=== PATIENT | male | born 1935 | race Caucasian/White ===

== ENCOUNTER 2017-07-30 02:00 | Emergency (ER) | payer MEDICARE, MEDICAID ==
[2017-07-30] MEDS ORDERED: Ondansetron INJ* 2 MG/ML VIAL IV ONE (02:49)
[2017-07-30] MEDS ORDERED: NS 0.9% 1000 ML* 1,000 ML IV ONE (02:49)
[2017-07-30] MEDS ORDERED: Hyoscyamine TAB* 0.125 MG PO ONE (03:07)
[2017-07-30 03:13] LABS: ABS Basophils 0 10^3/ul (0-0.2); ABS Eosinophils 0.1 10^3/ul (0-0.6); ABS Lymphocytes 0.3 10^3/ul (1.0-4.8); ABS Monocytes 0.3 10^3/ul (0-0.8); ABS Neutrophils 7.8 10^3/ul (1.5-7.7); ABS Nucleated RBC 0 10^3/ul; Eosinophil % 1.4 % (0-6); Hematocrit 44 % (42-52); Hemoglobin 15.2 g/dl (14.0-18.0); Lymphocyte % 3.2 % (25-47); Mean Corpuscular HGB Conc 34 g/dl (31-36); Mean Corpuscular Hemoglobin 32 pg (27-31); Mean Corpuscular Volume 93 fL (80-94); Mean Platelet Volume 9 um3 (7.4-10.4); Nucleated Red Blood Cells % 0.1; Platelet Count 219 10^3/ul (150-450); Red Blood Count 4.74 10^6/ul (4.0-5.4); Red Cell Distribution Width 14 % (10.5-15); White Blood Count 8.5 10^3/ul (3.5-10.8)
[2017-07-30 03:23] LABS: EGFR Non-African American 74.8 (>60)
[2017-07-30 05:05] VITALS: BP 125/62
--- NOTE | 2017-07-30 06:32 | ED ---
Lucio Metcalf Angela, scribed for Zia Julian MD on 07/30/17 at 0312 . GI/ HPI - HPI Summary HPI Summary: This pt is a 81 y/o male presenting to [facility] c/o nausea, vomiting, and diarrhea that began last evening (07/29/17). Pt reports he first had diarrhea and then got off the toilet and vomited. He notes he had some abd pain afterwards. Pt states he hsa never been a smoker PMHx: skin CA, reece's esophagus. - History of Current Complaint Chief Complaint: EDNauseaVomitDiarrh Time Seen by Provider: 07/30/17 02:52 Stated Complaint: POSSIBLE FLU Hx Obtained From: Patient Onset/Duration: Started Hours Ago, Still Present Timing: Lasting Hours Pain Intensity: 0 Location of Pain: Diffuse Associated Signs and Symptoms: Positive: Nausea, Vomiting, Diarrhea - Allergy/Home Medications Allergies/Adverse Reactions: Allergies Allergy/AdvReac Type Severity Reaction Status Date / Time Statins Allergy Rash Verified 07/30/17 02:07 PMH/Surg Hx/FS Hx/Imm Hx Cardiovascular History: Reports: Hx Pacemaker/ICD GI History: Reports: Other GI Disorders - reece's esophagus Musculoskeletal History: Reports: Other Musculoskeletal History - osteoarthritis Neurological History: Reports: 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 - Cancer History Cancer Type, Location and Year: 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 Infectious Disease History: No Infectious Disease History: Denies: Traveled Outside the [place] in Last 30 Days - Family History Family History: Lung CA - Social History Alcohol Use: None Substance Use Type: Reports: None Smoking Status (MU): Never Smoked Tobacco Review of Systems Negative: Fever, Chills Eyes: Negative ENT: Negative Positive: Abdominal Pain, Vomiting, Diarrhea, Nausea Musculoskeletal: Negative Skin: Negative Neurological: Negative All Other Systems Reviewed And Are Negative: Yes Physical Exam - Summary Physical Exam Summary: Appearance: Well appearing, no pain distress Skin: warm, dry, reflects adequate perfusion Head/face: normal Eyes: EOMI, VAHID ENT: Mucous membranes are a little tacky. Scar on his nose. Neck: supple, non-tender Respiratory: CTA, breath sounds present Cardiovascular: RRR, pulses symmetrical. Pulses are good. Abdomen: non-tender, soft Bowel: bowel sounds are a little diminished. Musculoskeletal: normal, strength/ROM intact Neuro: normal, sensory motor intact, A&Ox3 Triage Information Reviewed: Yes Vital Signs On Initial Exam: Initial Vitals Temp Pulse Resp BP Pulse Ox 98.5 F 94 16 122/59 96 07/30/17 02:04 07/30/17 02:04 07/30/17 02:04 07/30/17 02:04 07/30/17 02:04 Vital Signs Reviewed: Yes Diagnostics - Vital Signs Vital Signs Temp Pulse Resp BP Pulse Ox 07/30/17 02:04 98.5 F 94 16 122/59 96 - Laboratory Lab Results: Lab Results 07/30/17 07/30/17 07/30/17 Range/Units 02:55 02:55 02:55 WBC 8.5 (3.5-10.8) 10^3/ul RBC 4.74 (4.0-5.4) 10^6/ul Hgb 15.2 (14.0-18.0) g/dl Hct 44 (42-52) % MCV 93 (80-94) fL MCH 32 H (27-31) pg MCHC 34 (31-36) g/dl RDW 14 (10.5-15) % Plt Count 219 (150-450) 10^3/ul MPV 9 (7.4-10.4) um3 Neut % (Auto) 91.3 H (38-83) % Lymph % (Auto) 3.2 L (25-47) % [place] % (Auto) 3.8 (1-9) % Eos % (Auto) 1.4 (0-6) % Baso % (Auto) 0.3 (0-2) % Absolute Neuts (auto) 7.8 H (1.5-7.7) 10^3/ul Absolute Lymphs (auto) 0.3 L (1.0-4.8) 10^3/ul Absolute Monos (auto) 0.3 (0-0.8) 10^3/ul Absolute Eos (auto) 0.1 (0-0.6) 10^3/ul Absolute Basos (auto) 0 (0-0.2) 10^3/ul Absolute Nucleated RBC 0 10^3/ul Nucleated RBC % 0.1 Sodium 136 (133-145) mmol/L Potassium 4.1 (3.5-5.0) mmol/L Chloride 101 (101-111) mmol/L Carbon Dioxide 28 (22-32) mmol/L Anion Gap 7 (2-11) mmol/L BUN 26 H (6-24) mg/dL Creatinine 0.96 (0.67-1.17) mg/dL Est GFR ( Amer) 96.2 (>60) Est GFR (Non-Af Amer) 74.8 (>60) BUN/Creatinine Ratio 27.1 H (8-20) Glucose 143 H (70-100) mg/dL Lactic Acid 1.4 (0.5-2.0) mmol/L Calcium 8.8 (8.6-10.3) mg/dL Total Bilirubin 0.70 (0.2-1.0) mg/dL AST 17 (13-39) U/L ALT 14 (7-52) U/L Alkaline Phosphatase 79 (34-104) U/L C-Reactive Protein 11.93 H (< 5.00) mg/L Total Protein 6.8 (6.4-8.9) g/dL Albumin 4.0 (3.2-5.2) g/dL Globulin 2.8 (2-4) g/dL Albumin/Globulin Ratio 1.4 (1-3) Lipase 38 (11.0-82.0) U/L Result Diagrams: 07/30/17 02:55 07/30/17 02:55 Lab Statement: Any lab studies that have been ordered have been reviewed, and results considered in the medical decision making process. Re-Evaluation - Re-Evaluation First Eval Re-Evaluation Time: 04:47 Comment: Pt is feeling a little better. He had a small amount of watery stool earlier here in the ED. On re-examination, his abd is soft and nontender, with bowel sounds present. I reviewed the lab results with the pt. GIGU Course/Dx - Course Course Of Treatment: acute onset of N/V/D without abd pain, abd soft and non- tender here. Watery stool. Urinated here. No evidence for dehydration. Improved with zofran and fluids. Pt wished to discharge, encouraged close f/u PMD. - Diagnoses Provider Diagnoses: Acute gastroenteritis Discharge - Discharge Plan Condition: Good Disposition: HOME Prescriptions: Loperamide CAP* [Imodium CAP*] 2 mg PO Q4H PRN #20 cap PRN Reason: Diarrhea Ondansetron [Zofran Odt] 4 mg PO TID PRN #12 tab PRN Reason: Nausea Patient Education Materials: Gastroenteritis (ED) Referrals: Logan Nath, [Primary Care Provider] - Additional Instructions: Call your doctor first thing in the morning for a follow up appt. Drink plenty of fluids, Gatorade G2 may work best. Return with fever, unable to keep down fluids, worse or other concerns. [place] diet when able. The documentation as recorded by the Lucio topete Angela accurately reflects the service I personally performed and the decisions made by me, Zia Julian MD.
== END 2017-07-30 05:07 | disposition home or self-care (01) ==
LOC: ED 02:00
DX: K52.9 Noninfective gastroenteritis and colitis, unspecified (principal); Z88.8 Allergy status to other drugs, medicaments and biological substances
CPT/HCPCS: 36415; 80053; 83605; 83690; 85025; 86140; 96361; 96374; 99283; A9270-GY; J2405

== ENCOUNTER 2018-10-19 18:02 | Emergency (ER) | payer MEDICARE, MEDICAID ==
[2018-10-19 18:54] LABS: ABS Basophils 0.1 10^3/ul (0-0.2); ABS Eosinophils 0.4 10^3/ul (0-0.6); ABS Lymphocytes 1.9 10^3/ul (1.0-4.8); ABS Monocytes 0.6 10^3/ul (0-0.8); ABS Neutrophils 4.4 10^3/ul (1.5-7.7); ABS Nucleated RBC 0 10^3/ul; Eosinophil % 5.9 %; Hematocrit 43 % (36-46); Hemoglobin 15.3 g/dL (14.0-18.0); Lymphocyte % 25.5 %; Mean Corpuscular HGB Conc 35 g/dL (31-36); Mean Corpuscular Hemoglobin 32 pg (27-31); Mean Corpuscular Volume 92 fL (80-94); Mean Platelet Volume 8.2 fL (7.4-10.4); Nucleated Red Blood Cells % 0.1; Platelet Count 287 10^3/uL (150-450); Red Blood Count 4.71 10^6 /uL (4.18-5.48); Red Cell Distribution Width 14 % (10.5-15); White Blood Count 7.4 10^3/uL (3.5-10.8)
[2018-10-19 18:56] LABS: Urine Appearance Clear; Urine Bilirubin Negative (Negative); Urine Blood Negative (Negative); Urine Color Yellow; Urine Glucose Negative (Negative); Urine Ketones Trace (Negative); Urine Nitrite Negative (Negative); Urine Protein Negative (Negative); Urine Specific Gravity 1.029 (1.010-1.030); Urine Urobilinogen Negative (Negative)
[2018-10-19 19:08] LABS: ALT 13 U/L (7-52); Albumin 4.3 g/dL (3.2-5.2); Albumin/Globulin Ratio 1.5 (1-3); Alkaline Phosphatase 100 U/L (34-104); BUN/Creatinine Ratio 22.3 (8-20); Blood Urea Nitrogen 21 mg/dL (6-24); CO2 Carbon Dioxide 26 mmol/L (22-32); Chloride 104 mmol/L (101-111); EGFR African American 92.3 (>60); EGFR Non-African American 76.3 (>60); Globulin 2.8 g/dL (2-4); Glucose 81 mg/dL (70-100); Sodium 137 mmol/L (135-145); Total Protein 7.1 g/dL (6.4-8.9)
[2018-10-19 19:29] LABS: Anion Gap 7 mmol/L (2-11)
--- NOTE | 2018-10-19 19:54 | ED ---
Abdominal Pain/Male - HPI Summary HPI Summary: The patient is a 83 year old male who is presenting to the [facility] with a chief complaint of abd pain. He is accompanied by his niece. The patient describes the pain to be located to the suprapubic to the left groin region. Pain radiates to the left flank and lower back. Symptoms are partially alleviated by Tylenol, but not completely. Patient denies N/V/D, fever, burning urination, urinary urgency, and hematuria. The pain is rated to be 8/10 in severity. Symptoms are not aggravated by nothing. Last bowel movement was this morning. The pain is stated to be intermittent and the episodes have been reoccurring for the past 6 to 7 days. 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 - History of Current Complaint Chief Complaint: EDAbdPain Stated Complaint: PAIN IN GROIN PER PT Time Seen by Provider: 10/19/18 19:48 Hx Obtained From: Patient Onset/Duration: Sudden Onset Timing: Constant Severity Initially: Severe Severity Currently: Severe Pain Intensity: 8 Pain Scale Used: 0-10 Numeric Location: Suprapubic, Groin - Left groin. Radiates to: Back - Lower back, Flank - Left Flank Aggravating Factor(s): Nothing Alleviating Factor(s): Other: - Tylenol Associated Signs And Symptoms: Positive: Other - Negative urinary urgerncy; Negative burning sensation when urinating; Negative hematuria.. Negative: Fever , Nausea, Vomiting, Diarrhea - Allergies/Home Medications Allergies/Adverse Reactions: Allergies Allergy/AdvReac Type Severity Reaction Status Date / Time Adporxh-Sih-Bzx Reductase Allergy Rash Verified 10/19/18 18:08 Inhibitor Home Medications: Home Medications Levothyroxine TAB* [Synthroid TAB*] 75 mcg PO DAILY 10/19/18 [History Confirmed 10/19/18] Lisinopril TAB* [Prinivil TAB 5 MG*] 5 mg PO DAILY 10/19/18 [History Confirmed 10/19/18] Metoprolol Tartrate 50 mg PO DAILY 10/19/18 [History Confirmed 10/19/18] Omeprazole 40 mg PO DAILY 10/19/18 [History Confirmed 10/19/18] Sucralfate SUSP (NF) [Carafate SUSP (NF)] 10 ml PO DAILY 10/19/18 [History Confirmed 10/19/18] PMH/Surg Hx/FS Hx/Imm Hx Cardiovascular History: Reports: Hx Pacemaker/ICD GI History: Reports: Other GI Disorders - reece's esophagus Musculoskeletal History: Reports: Other Musculoskeletal History - osteoarthritis Neurological History: Reports: 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 Negative: Vomiting, Diarrhea, Nausea Negative: burning, frequency, hematuria Musculoskeletal: Other - Left Groin pain (radiates to the lower back and left flank) Skin: Negative Neurological: Negative Psychological: Normal All Other Systems Reviewed And Are Negative: Yes Physical Exam - Summary Physical Exam Summary: VITAL SIGNS: Reviewed. GENERAL: Patient is a well-developed and nourished (MALE) who is lying comfortable in the stretcher. Patient is not in any acute respiratory distress. HEAD AND FACE: No signs of trauma. No ecchymosis, hematomas or skull depressions. No sinus tenderness. EYES: PERRLA, EOMI x 2, No injected conjunctiva, no nystagmus. EARS: Hearing grossly intact. Ear canals and tympanic membranes are within normal limits. MOUTH: Oropharynx within normal limits. NECK: Supple, trachea is midline, no adenopathy, no JVD, no carotid bruit, no c- spine tenderness, neck with full ROM. CHEST: Symmetric, no tenderness at palpation LUNGS: Clear to auscultation bilaterally. No wheezing or crackles. CVS: Regular rate and rhythm, S1 and S2 present, no murmurs or gallops appreciated. ABDOMEN: Soft, non-tender. ABD DISTENSION. No rebound no guarding, and no masses palpated. Bowel sounds are normal. BACK: NO CVA TENDERNESS EXTREMITIES: FROM in all major joints, no edema, no cyanosis or clubbing. NEURO: Alert and oriented x 3. No acute neurological deficits. Speech is normal and follows commands. BILATERAL STRAIGHT LEG TEST IS NEGATIVE SKIN: Dry and warm Triage Information Reviewed: Yes Vital Signs On Initial Exam: Initial Vitals Temp Pulse Resp BP Pulse Ox 97.7 F 70 17 158/93 93 10/19/18 18:04 10/19/18 18:04 10/19/18 18:04 10/19/18 18:04 10/19/18 18:04 Vital Signs Reviewed: Yes Diagnostics - Vital Signs Vital Signs Temp Pulse Resp BP Pulse Ox 10/19/18 18:04 97.7 F 70 17 158/93 93 - Laboratory Lab Results: Lab Results 10/19/18 10/19/18 10/19/18 Range/Units 18:33 18:33 18:45 WBC 7.4 (3.5-10.8) 10^3/uL RBC 4.71 (4.18-5.48) 10^6 /uL Hgb 15.3 (14.0-18.0) g/dL Hct 43 (36-46) % MCV 92 (80-94) fL MCH 32 H (27-31) pg MCHC 35 (31-36) g/dL RDW 14 (10.5-15) % Plt Count 287 (150-450) 10^3/uL MPV 8.2 (7.4-10.4) fL Neut % (Auto) 58.9 % Lymph % (Auto) 25.5 % [place] % (Auto) 8.3 % Eos % (Auto) 5.9 % Baso % (Auto) 1.4 % Absolute Neuts (auto) 4.4 (1.5-7.7) 10^3/ul Absolute Lymphs (auto) 1.9 (1.0-4.8) 10^3/ul Absolute Monos (auto) 0.6 (0-0.8) 10^3/ul Absolute Eos (auto) 0.4 (0-0.6) 10^3/ul Absolute Basos (auto) 0.1 (0-0.2) 10^3/ul Absolute Nucleated RBC 0 10^3/ul Nucleated RBC % 0.1 Sodium 137 (135-145) mmol/L Potassium TNP Chloride 104 (101-111) mmol/L Carbon Dioxide 26 (22-32) mmol/L Anion Gap 7 (2-11) mmol/L BUN 21 (6-24) mg/dL Creatinine 0.94 (0.67-1.17) mg/dL Est GFR ( Amer) 92.3 (>60) Est GFR (Non-Af Amer) 76.3 (>60) BUN/Creatinine Ratio 22.3 H (8-20) Glucose 81 (70-100) mg/dL Calcium 9.0 (8.6-10.3) mg/dL Total Bilirubin 0.30 (0.2-1.0) mg/dL AST TNP ALT 13 (7-52) U/L Alkaline Phosphatase 100 (34-104) U/L Total Protein 7.1 (6.4-8.9) g/dL Albumin 4.3 (3.2-5.2) g/dL Globulin 2.8 (2-4) g/dL Albumin/Globulin Ratio 1.5 (1-3) Urine Color Yellow Urine Appearance Clear Urine pH 5.0 (5-9) Ur Specific [place] 1.029 (1.010-1.030) Urine Protein Negative (Negative) Urine Ketones Trace A (Negative) Urine Blood Negative (Negative) Urine Nitrate Negative (Negative) Urine Bilirubin Negative (Negative) Urine Urobilinogen Negative (Negative) Ur Leukocyte Esterase Negative (Negative) Urine Glucose Negative (Negative) Result Diagrams: 10/19/18 18:33 10/19/18 18:33 Lab Statement: Any lab studies that have been ordered have been reviewed, and results considered in the medical decision making process. Abdominal Pain Male Course/Dx - Course Course Of Treatment: The patient is a 83 year old male who is presenting to the [facility] w/ a chief complaint of abd pain. The patient states the pain to be loacted around the suprapubic region and at the left lower groin region. The pain radiates to the lower back and to the left flank. 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 The patient has had the pain for 6 to 7 days and it has been intermittent. The pain is reduced by Tylenol partially. In the ED Course, the patient received blood work and an urinalysis that showed no remarkable findings. We discussed that the patient should reduce his workload for a week and see if his symptoms still persist as well as use Tylenol every four hours. Warm compresses are recommeded over the region of pain and we also recommended that the patient should see his primary care physician if the pain is still ongoing or return to the [facility]. The patient is agreeable with this plan and he will be discharged home. The dx will be musculoskeletal pain. - Diagnoses Provider Diagnoses: Musculoskeletal pain Discharge - Sign-Out/Discharge Documenting (check all that apply): Patient Departure Patient Received Moderate/Deep Sedation with Procedure: No - Discharge Plan Condition: Stable Disposition: HOME Patient Education Materials: Musculoskeletal Pain (ED) Referrals: Logan Nath, [Primary Care Provider] - Additional Instructions: TYLENOL EVERY FOUR HOURS; TAKE NEEDED FOR PAIN. WARM COMPRESSES AT AREA OF PAIN. DECREASED PHYSICAL ACTIVITY FOR A WEEK. RETURN TO THE EMERGENCY DEPARTMENT FOR CHANGING OR WORSENING SYMPTOMS. FOLLOW UP WITH YOUR PRIMARY CARE PROVIDER WITHIN ONE WEEK IF SYMPTOMS ARE ONGOING. - Attestation Statements Document Initiated by Mayank: Yes Documenting Scribe: Santana Mann Provider For Whom Colinibe is Documenting (Include Credential): Dr. Philipp Shawibchaitanya Attestation: Santana Metcalf, manindered for Dr. Narendra Sanchez on 10/19/18 at 2020. Status of Scribe Document: Ready
[2018-10-19 20:22] VITALS: BP 159/81
== END 2018-10-19 20:21 | disposition home or self-care (01) ==
LOC: ED 18:02
DX: M79.18 Myalgia, other site (principal); K22.70 Barrett's esophagus without dysplasia; M19.90 Unspecified osteoarthritis, unspecified site; Z88.8 Allergy status to other drugs, medicaments and biological substances; Z79.899 Other long term (current) drug therapy; Z95.810 Presence of automatic (implantable) cardiac defibrillator; Z85.828 Personal history of other malignant neoplasm of skin
CPT/HCPCS: 36415; 80053; 81003; 85025; 99282

== ENCOUNTER 2019-06-17 10:41 | Emergency (ER) | payer MEDICARE, MEDICAID ==
--- NOTE | 2019-06-17 11:01 | ED ---
Skin Complaint - HPI Summary HPI Summary: This patient is an 83 year old male presenting to [facility] with a chief complaint of a skin irregularity first noticed 3 weeks ago. The patient states he noticed a new spot on his right arm around 1 cm in diameter and is concerned about skin cancer. He states a history of squamous cell carcinomas to his nose and right neck. He states when he gets these his dermatology typically just patches them. He states he tried to schedule dermatology for this but they were booked for 5- weeks. He states it has change since he first noticed it and was initially pruritic but now is not. . - History of Current Complaint Chief Complaint: EDRashSkinAbscess Time Seen by Provider: 06/17/19 10:55 Stated Complaint: SKIN RASH Hx Obtained From: Patient Onset/Duration: Started Weeks Ago Pain Intensity: 0 Pain Scale Used: 0-10 Numeric Skin Location: Arm - Allergy/Home Medications Allergies/Adverse Reactions: Allergies Allergy/AdvReac Type Severity Reaction Status Date / Time Keujtbu-Olk-Biy Reductase Allergy Rash Verified 06/17/19 10:48 Inhibitor PMH/Surg Hx/FS Hx/Imm Hx Cardiovascular History: Reports: Hx Pacemaker/ICD GI History: Reports: Other GI Disorders - reece's esophagus Musculoskeletal History: Reports: Other Musculoskeletal History - osteoarthritis Neurological History: Reports: 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 GENERAL: Patient is a well-developed and nourished MALE who is lying comfortable in the stretcher. Patient is not in any acute respiratory distress. HEAD AND FACE: No signs of trauma. No ecchymosis, hematomas or skull depressions. No sinus tenderness. EYES: PERRLA, EOMI x 2, No injected conjunctiva, no nystagmus. EARS: Hearing grossly intact. Ear canals and tympanic membranes are within normal limits. MOUTH: Oropharynx within normal limits. NECK: Supple, trachea is midline, no adenopathy, no JVD, no carotid bruit, no c- spine tenderness, neck with full ROM. CHEST: Symmetric, no tenderness at palpation. LUNGS: Clear to auscultation bilaterally. No wheezing or crackles. CVS: Regular rate and rhythm, S1 and S2 present, no murmurs or gallops appreciated. ABDOMEN: Soft, non-tender. No signs of distention. No rebound, no guarding, and no masses palpated. Bowel sounds are normal. EXTREMITIES: FROM in all major joints, no edema, no cyanosis or clubbing. NEURO: Alert and oriented x 3. No acute neurological deficits. Speech is normal and follows commands. SKIN: Dry and warm. Erythematous lesion on the right forearm with irregular borders which has been growing in size and pruritic. Triage Information Reviewed: Yes Vital Signs On Initial Exam: Initial Vitals Temp Pulse Resp BP Pulse Ox 99.2 F 72 16 192/74 94 06/17/19 10:42 06/17/19 10:42 06/17/19 10:42 06/17/19 10:42 06/17/19 10:42 Vital Signs Reviewed: Yes Procedures - Sedation Patient Received Moderate/Deep Sedation with Procedure: No Diagnostics - Vital Signs Vital Signs Temp Pulse Resp BP Pulse Ox 06/17/19 10:42 99.2 F 72 16 192/74 94 - Laboratory Lab Statement: Any lab studies that have been ordered have been reviewed, and results considered in the medical decision making process. Course/Dx - Course Assessment/Plan: This patient is an 83 year old male presenting to [facility] with a chief complaint of a skin irregularity first noticed 3 weeks ago. The patient states he noticed a new spot on his right arm around 1 cm in diameter and is concerned about skin cancer. He states a history of squamous cell carcinomas to his nose and right neck. He states when he gets these his dermatology typically just patches them. He states he tried to schedule dermatology for this but they were booked for 5-weeks. He states it has change since he first noticed it and was initially pruritic but now is not. Another. Patient will be referred to dermatology for possible biopsy. Patient is hemodynamically stable alert oriented 3. Cosleep - Diagnoses Provider Diagnoses: Skin lesion Discharge ED - Sign-Out/Discharge Documenting (check all that apply): Patient Departure - Discharge - Discharge Plan Condition: Stable Disposition: HOME Patient Education Materials: Itchy Skin (ED) Referrals: Juju Lackey [Medical Doctor] - As Soon As Possible Additional Instructions: Follow up with Dr. Lackey, Dermatology, for follow up. - Billing Disposition and Condition Condition: STABLE Disposition: Home - Attestation Statements Document Initiated by Scribe: Yes Documenting Scribe: Martínez Carson Provider For Whom Scribe is Documenting (Include Credential): Torrey Gallagher MD Scribe Attestation: Martínez Metcalf, scribed for Torrey Gallagher MD on 06/17/19 at 1830. Scribe Documentation Reviewed: Yes Provider Attestation: The documentation as recorded by the Martínez topete accurately reflects the service I personally performed and the decisions made by Torrey gonzalez MD Status of Scribe Document: Viewed
[2019-06-17 11:22] VITALS: BP 175/92
== END 2019-06-17 11:11 | disposition home or self-care (01) ==
LOC: ED 10:41
DX: L98.9 Disorder of the skin and subcutaneous tissue, unspecified (principal); Z85.828 Personal history of other malignant neoplasm of skin; Z95.810 Presence of automatic (implantable) cardiac defibrillator; Z88.8 Allergy status to other drugs, medicaments and biological substances
CPT/HCPCS: 99281

== ENCOUNTER 2020-06-29 07:19 | Inpatient (IN) ==
[2020-06-29] MEDS ORDERED: Heparin DRIP 25,000 UNITS BAG 25,000 UNITS/500 ML BAG IV SCH (09:15)
[2020-06-29] MEDS ORDERED: Heparin 5000 UNITS/ML 1 mL VIAL IV SCH (10:00)
[2020-06-29 11:10] LABS: ABS Eosinophils 0.1 10^3/ul (0-0.6); ABS Lymphocytes 1.1 10^3/ul (1.0-4.8); ABS Monocytes 0.8 10^3/ul (0-0.8); ABS Neutrophils 9.6 10^3/ul (1.5-7.7); Blood Urea Nitrogen 16 mg/dL (6-24); EGFR African American 63.9 (>60); EGFR Non-African American 52.8 (>60); Eosinophil % 0.9 %; Hematocrit 37 % (42-52); Hemoglobin 12.5 g/dL (14.0-18.0); Lymphocyte % 9.3 %; Mean Corpuscular HGB Conc 34 g/dL (31-36); Mean Corpuscular Hemoglobin 32 pg (27-31); Mean Corpuscular Volume 94 fL (80-94); Mean Platelet Volume 8.4 fL (7.4-10.4); Platelet Count 273 10^3/uL (150-450); Red Blood Count 3.93 10^6 /uL (4.18-5.48); Red Cell Distribution Width 14 % (10-15); White Blood Count 11.7 10^3/uL (3.5-10.8)
[2020-06-29 13:53] LABS: Troponin I 0.03 ng/mL (<0.03)
[2020-06-29] MEDS: Enoxaparin 100 MG/ML SYR SUBCUT SCH (15:36)
[2020-06-29] MEDS: Azithromycin 500 mg/250 ml NS 500 MG/250 ML BAG IVPB SCH (15:36)
[2020-06-30] MEDS: Enoxaparin 100 MG/ML SYR SUBCUT SCH ×2 (00:03→12:01)
[2020-06-30 03:35] LABS: ABS Basophils 0.1 10^3/ul (0-0.2); ABS Eosinophils 0.1 10^3/ul (0-0.6); ABS Lymphocytes 0.7 10^3/ul (1.0-4.8); ABS Monocytes 0.9 10^3/ul (0-0.8); ABS Neutrophils 7.7 10^3/ul (1.5-7.7); Eosinophil % 1.1 %; Hematocrit 30 % (42-52); Hemoglobin 10.4 g/dL (14.0-18.0); Lymphocyte % 7.5 %; Mean Corpuscular HGB Conc 35 g/dL (31-36); Mean Corpuscular Hemoglobin 32 pg (27-31); Mean Corpuscular Volume 92 fL (80-94); Mean Platelet Volume 7.5 fL (7.4-10.4); Platelet Count 208 10^3/uL (150-450); Red Blood Count 3.26 10^6 /uL (4.18-5.48); Red Cell Distribution Width 14 % (10-15); White Blood Count 9.5 10^3/uL (3.5-10.8)
[2020-06-30 03:49] LABS: BUN/Creatinine Ratio 15.8 (8-20); Calcium 8.2 mg/dL (8.6-10.3); EGFR African American 61.7 (>60); Potassium 3.7 mmol/L (3.5-5.0)
[2020-06-30] MEDS: cefTRIAXone VIAL 500 MG in NS 0.9% 50 ML 50 ML IVPB SCH (10:39)
[2020-06-30] MEDS: Sucralfate 1 gm SUSP 1 GM/10 ML UDC PO SCH (12:02)
[2020-06-30] MEDS: Azithromycin 500 mg/250 ml NS 500 MG/250 ML BAG IVPB SCH (12:09)
[2020-07-01 05:32] LABS: ABS Basophils 0.1 10^3/ul (0-0.2); ABS Eosinophils 0.4 10^3/ul (0-0.6); ABS Lymphocytes 0.8 10^3/ul (1.0-4.8); ABS Monocytes 0.8 10^3/ul (0-0.8); ABS Neutrophils 7.6 10^3/ul (1.5-7.7); Eosinophil % 4.5 %; Hematocrit 32 % (42-52); Hemoglobin 11.1 g/dL (14.0-18.0); Lymphocyte % 8.5 %; Mean Corpuscular HGB Conc 35 g/dL (31-36); Mean Corpuscular Hemoglobin 32 pg (27-31); Mean Corpuscular Volume 92 fL (80-94); Mean Platelet Volume 7.6 fL (7.4-10.4); Platelet Count 259 10^3/uL (150-450); Red Blood Count 3.47 10^6 /uL (4.18-5.48); Red Cell Distribution Width 14 % (10-15); White Blood Count 9.8 10^3/uL (3.5-10.8)
[2020-07-01 06:04] LABS: BUN/Creatinine Ratio 17.7 (8-20); Calcium 8.3 mg/dL (8.6-10.3); EGFR African American 57.7 (>60); EGFR Non-African American 47.7 (>60); Potassium 3.6 mmol/L (3.5-5.0)
[2020-07-01] MEDS: Sucralfate 1 gm SUSP 1 GM/10 ML UDC PO SCH (08:38)
[2020-07-01] MEDS: cefTRIAXone VIAL 500 MG in NS 0.9% 50 ML 50 ML IVPB SCH (10:22)
[2020-07-01] MEDS: Azithromycin 500 mg/250 ml NS 500 MG/250 ML BAG IVPB SCH (11:53)
[2020-07-02 05:35] LABS: ABS Eosinophils 0.5 10^3/ul (0-0.6); ABS Lymphocytes 0.7 10^3/ul (1.0-4.8); ABS Monocytes 0.8 10^3/ul (0-0.8); ABS Neutrophils 6.8 10^3/ul (1.5-7.7); Eosinophil % 5.5 %; Hematocrit 32 % (42-52); Hemoglobin 10.9 g/dL (14.0-18.0); Lymphocyte % 7.5 %; Mean Corpuscular HGB Conc 35 g/dL (31-36); Mean Corpuscular Hemoglobin 32 pg (27-31); Mean Corpuscular Volume 92 fL (80-94); Mean Platelet Volume 7.5 fL (7.4-10.4); Platelet Count 267 10^3/uL (150-450); Red Blood Count 3.43 10^6 /uL (4.18-5.48); Red Cell Distribution Width 14 % (10-15); White Blood Count 8.8 10^3/uL (3.5-10.8)
[2020-07-02 08:41] VITALS: BP 136/73
[2020-07-02] MEDS: Sucralfate 1 gm SUSP 1 GM/10 ML UDC PO SCH (09:59)
== END 2020-07-02 12:00 | disposition home or self-care (01) | DRG 176 ==
LOC: EDACCT# → ED 07:19 → EDHOLD 09:09 → MED 16:00 → MEDTELE 06-30 22:20
PROVIDERS: ADMIT Internal Medicine; ATTEND Internal Medicine

== ENCOUNTER 2021-09-20 02:12 | Inpatient (IN) ==
[2021-09-20] MEDS ORDERED: Lactated Ringers 1000 ml BAG 1,000 ML IV ONE ×2 (02:52→06:33)
[2021-09-20 03:27] LABS: Hematocrit 36 % (42-52); Hemoglobin 12.6 g/dL (14.0-18.0); Mean Corpuscular HGB Conc 35 g/dL (31-36); Mean Corpuscular Hemoglobin 33 pg (27-31); Mean Corpuscular Volume 93 fL (80-94); Mean Platelet Volume 7.8 fL (7.4-10.4); Platelet Count 115 10^3/uL (150-450); Red Blood Count 3.83 10^6 /uL (4.18-5.48); Red Cell Distribution Width 14 % (10-15); White Blood Count 3.5 10^3/uL (3.5-10.8)
[2021-09-20 04:12] LABS: ABS Eosinophils 0.1 10^3/ul (0-0.6); ABS Lymphocytes 0.3 10^3/ul (1.0-4.8); ABS Monocytes 0.1 10^3/ul (0-0.8); ABS Neutrophils 2.9 10^3/ul (1.5-7.7); Eosinophil % 3.8 %; Nucleated Red Blood Cells % 0.3; RBC Morphology Normal (Normal)
[2021-09-20 04:16] LABS: Potassium 4.2 mmol/L (3.5-5.0); eGFR CKD-EPI 27.8 (>60)
[2021-09-20] MEDS: Acetaminophen IV 1 GM/100ML 100 ML IV PRN ×2 (04:21→17:15)
[2021-09-20 04:46] LABS: Total Bilirubin 0.7 mg/dL (0.2-1.0)
[2021-09-20 04:47] LABS: Albumin 3.6 g/dL (3.2-5.2); Albumin/Globulin Ratio 1.3 (1-3); Calcium 8.3 mg/dL (8.6-10.3); Globulin 2.7 g/dL (2-4); Total Protein 6.3 g/dL (6.4-8.9)
[2021-09-20 09:44] LABS: Urine Appearance Cloudy; Urine Bacteria 1+ (Absent); Urine Bilirubin Negative (Negative); Urine Blood 2+ (Negative); Urine Color Yellow; Urine Glucose Negative (Negative); Urine Granular Casts Present (Absent); Urine Ketones Negative (Negative); Urine Nitrite Negative (Negative); Urine Protein 1+(30 mg/dL) (Negative); Urine Red Blood Cell 3+(>10/hpf) (Absent); Urine Specific Gravity 1.017 (1.002-1.030); Urine Urobilinogen Negative (Negative); Urine White Blood Cell Trace(0-5/hpf) (Absent)
[2021-09-20] MEDS ORDERED: Ondansetron 4 mg VIAL 2 MG/ML 2 ml VIAL IV ONE (12:42)
[2021-09-20] MEDS ORDERED: Furosemide 40 mg/4 ml IV VIAL IV SLOW PU ONE (16:02)
[2021-09-20] MEDS ORDERED: Piperacillin/Tazobac ADVAN 3.375 GM in NS 0.9% 100 ml BAG 100 ML IV ONE (16:02)
[2021-09-20] MEDS ORDERED: Piperacillin/Tazobac 3.375 GM BAG ONE (16:28)
[2021-09-20] MEDS ORDERED: Zosyn per Pharmacy NOTE FOLLOW UP SCH (17:00)
[2021-09-20] MEDS ORDERED: Ondansetron 4 mg VIAL 2 MG/ML 2 ml VIAL IV PRN (17:04)
[2021-09-20] MEDS: ZOSYN 3.375 GM Q8H per EXTENDED INFUSION IV SCH (21:58)
[2021-09-20] MEDS: Dexamethasone 0.1 MG/ML ORALSYR PO SCH (22:52)
[2021-09-21] MEDS: ZOSYN 3.375 GM Q8H per EXTENDED INFUSION IV SCH ×2 (05:19→17:28)
[2021-09-21 05:54] LABS: ABS Lymphocytes 0.3 10^3/ul (1.0-4.8); ABS Monocytes 0.1 10^3/ul (0-0.8); ABS Neutrophils 5.1 10^3/ul (1.5-7.7); Eosinophil % 0.7 %; Hematocrit 35 % (42-52); Hemoglobin 12.5 g/dL (14.0-18.0); Lymphocyte % 5.9 %; Mean Corpuscular HGB Conc 36 g/dL (31-36); Mean Corpuscular Hemoglobin 33 pg (27-31); Mean Corpuscular Volume 92 fL (80-94); Mean Platelet Volume 8.1 fL (7.4-10.4); Platelet Count 98 10^3/uL (150-450); Red Blood Count 3.79 10^6 /uL (4.18-5.48); Red Cell Distribution Width 14 % (10-15); White Blood Count 5.6 10^3/uL (3.5-10.8)
[2021-09-21 06:04] LABS: Calcium 8.1 mg/dL (8.6-10.3); Magnesium 1.6 mg/dL (1.9-2.7); Potassium 3.8 mmol/L (3.5-5.0); eGFR CKD-EPI 26.4 (>60)
[2021-09-21] MEDS: Dexamethasone 0.1 MG/ML ORALSYR PO SCH ×4 (08:44→20:17)
[2021-09-21] MEDS: Fluticasone NASAL SPRAY 50MCG 16 gm SPRAY BTL INTRANASAL SCH (08:45)
[2021-09-21] MEDS ORDERED: Lactated Ringers 1000 ml BAG 1,000 ML IV SCH (09:00)
[2021-09-21] MEDS ORDERED: Furosemide 40 mg/4 ml IV VIAL IV SLOW PU ONE (09:00)
[2021-09-21] MEDS: Lactated Ringers 1000 ml BAG 1,000 ML IV SCH (12:28)
[2021-09-21 19:02] LABS: ABS Lymphocytes 0.3 10^3/ul (1.0-4.8); ABS Monocytes 0.1 10^3/ul (0-0.8); ABS Neutrophils 4.6 10^3/ul (1.5-7.7); Eosinophil % 0.6 %; Hematocrit 35 % (42-52); Hemoglobin 12.2 g/dL (14.0-18.0); Lymphocyte % 5.5 %; Mean Corpuscular HGB Conc 35 g/dL (31-36); Mean Corpuscular Hemoglobin 33 pg (27-31); Mean Corpuscular Volume 93 fL (80-94); Mean Platelet Volume 8.1 fL (7.4-10.4); Platelet Count 118 10^3/uL (150-450); Red Blood Count 3.75 10^6 /uL (4.18-5.48); Red Cell Distribution Width 14 % (10-15)
[2021-09-21 19:33] LABS: Albumin 3.3 g/dL (3.2-5.2); Albumin/Globulin Ratio 1.4 (1-3); Globulin 2.3 g/dL (2-4); Magnesium 1.7 mg/dL (1.9-2.7); Potassium 3.6 mmol/L (3.5-5.0); Total Bilirubin 0.7 mg/dL (0.2-1.0); Total Protein 5.6 g/dL (6.4-8.9); eGFR CKD-EPI 25.8 (>60)
[2021-09-22] MEDS: ZOSYN 3.375 GM Q8H per EXTENDED INFUSION IV SCH ×2 (05:47→18:18)
[2021-09-22] MEDS: Fluticasone NASAL SPRAY 50MCG 16 gm SPRAY BTL INTRANASAL SCH (08:41)
[2021-09-22] MEDS: Dexamethasone 0.1 MG/ML ORALSYR PO SCH ×4 (09:26→19:40)
[2021-09-22 09:46] LABS: ABS Lymphocytes 0.3 10^3/ul (1.0-4.8); ABS Monocytes 0.1 10^3/ul (0-0.8); ABS Neutrophils 3.9 10^3/ul (1.5-7.7); Eosinophil % 0.8 %; Hematocrit 36 % (42-52); Hemoglobin 12.6 g/dL (14.0-18.0); Lymphocyte % 7.6 %; Mean Corpuscular HGB Conc 35 g/dL (31-36); Mean Corpuscular Hemoglobin 33 pg (27-31); Mean Corpuscular Volume 93 fL (80-94); Mean Platelet Volume 7.7 fL (7.4-10.4); Nucleated Red Blood Cells % 0.1; Platelet Count 127 10^3/uL (150-450); Red Blood Count 3.85 10^6 /uL (4.18-5.48); Red Cell Distribution Width 14 % (10-15); White Blood Count 4.4 10^3/uL (3.5-10.8)
[2021-09-22] MEDS: Albuterol HFA INHALER 8 gm MDI INH PRN (10:08)
[2021-09-22 10:29] LABS: Albumin 3.4 g/dL (3.2-5.2); Calcium 8.3 mg/dL (8.6-10.3); Potassium 3.6 mmol/L (3.5-5.0); Total Bilirubin 0.8 mg/dL (0.2-1.0)
[2021-09-22 10:34] LABS: Albumin/Globulin Ratio 1.3 (1-3); Globulin 2.7 g/dL (2-4); Total Protein 6.1 g/dL (6.4-8.9)
[2021-09-22 10:39] LABS: eGFR CKD-EPI 29.2 (>60)
[2021-09-22 10:54] LABS: Magnesium 1.8 mg/dL (1.9-2.7)
[2021-09-22] MEDS: Lactated Ringers 1000 ml BAG 1,000 ML IV SCH (17:43)
[2021-09-23] MEDS: ZOSYN 3.375 GM Q8H per EXTENDED INFUSION IV SCH ×3 (05:58→22:20)
[2021-09-23] MEDS: Dexamethasone 0.1 MG/ML ORALSYR PO SCH ×4 (09:15→20:52)
[2021-09-23] MEDS: Fluticasone NASAL SPRAY 50MCG 16 gm SPRAY BTL INTRANASAL SCH (09:16)
[2021-09-23] MEDS: Lactated Ringers 1000 ml BAG 1,000 ML IV SCH (09:43)
[2021-09-23 09:44] LABS: Calcium 8.3 mg/dL (8.6-10.3); Magnesium 1.5 mg/dL (1.9-2.7); Potassium 3.4 mmol/L (3.5-5.0)
[2021-09-23] MEDS ORDERED: Potassium Chlor 20 meq TAB.ER PO ONE (11:09)
[2021-09-23] MEDS ORDERED: Magnesium Sulfate IV 3 GM in NS 0.9% 100 ml BAG 100 ML IVPB ONE (11:09)
[2021-09-23] MEDS ORDERED: Magnesium Sulfate 2 GM IV (Premix) IVPB ONE (12:00)
[2021-09-23] MEDS ORDERED: Magnesium Sulfate 1 GM IV 1 GM/100 ML BAG IV ONE (13:00)
[2021-09-23 15:45] LABS: C Reactive Protein 101.69 mg/L (<8.01)
[2021-09-24] MEDS: ZOSYN 3.375 GM Q8H per EXTENDED INFUSION IV SCH ×3 (05:11→22:39)
[2021-09-24 06:05] LABS: Hematocrit 34 % (42-52); Hemoglobin 12.1 g/dL (14.0-18.0); Mean Corpuscular HGB Conc 36 g/dL (31-36); Mean Corpuscular Hemoglobin 33 pg (27-31); Mean Corpuscular Volume 94 fL (80-94); Platelet Count 156 10^3/uL (150-450); Red Blood Count 3.63 10^6 /uL (4.18-5.48); Red Cell Distribution Width 14 % (10-15); White Blood Count 3.5 10^3/uL (3.5-10.8)
[2021-09-24 06:15] LABS: ABS Eosinophils 0.1 10^3/ul (0-0.6); ABS Lymphocytes 0.4 10^3/ul (1.0-4.8); ABS Monocytes 0.1 10^3/ul (0-0.8); ABS Neutrophils 2.9 10^3/ul (1.5-7.7); Eosinophil % 1.7 %; Lymphocyte % 11.4 %; Nucleated Red Blood Cells % 0.4
[2021-09-24 06:26] LABS: Calcium 7.9 mg/dL (8.6-10.3); Potassium 4.5 mmol/L (3.5-5.0); eGFR CKD-EPI 36.2 (>60)
[2021-09-24] MEDS: Albuterol HFA INHALER 8 gm MDI INH PRN (08:07)
[2021-09-24] MEDS: Dexamethasone 0.1 MG/ML ORALSYR PO SCH ×4 (08:40→20:32)
[2021-09-24] MEDS: Fluticasone NASAL SPRAY 50MCG 16 gm SPRAY BTL INTRANASAL SCH (08:40)
[2021-09-24 10:09] LABS: Albumin 3.2 g/dL (3.2-5.2); Albumin/Globulin Ratio 1.5 (1-3); Direct Bilirubin 0.2 mg/dL (0.03-0.18); Globulin 2.2 g/dL (2-4); Indirect Bilirubin 0.4 mg/dL (0.3-1.0); Total Bilirubin 0.6 mg/dL (0.2-1.0); Total Protein 5.4 g/dL (6.4-8.9)
[2021-09-24] MEDS ORDERED: Furosemide 40 mg/4 ml IV VIAL IV SLOW PU ONE (13:26)
[2021-09-24] MEDS: Linezolid 600 MG IVPREMIX(*) 600 MG/300 ML BAG IVPB SCH (14:24)
[2021-09-24 15:33] LABS: Hepatitis B Surface Antigen Nonreactive (Nonreactive)
[2021-09-24 15:38] LABS: Hepatitis A Ab IgM Negative (Negative)
[2021-09-24 15:39] LABS: Hepatitis B Core IgM Nonreactive (Nonreactive)
[2021-09-24 15:51] LABS: Hepatitis C Antibody Negative (Negative)
[2021-09-24 17:14] LABS: Urine Appearance Turbid; Urine Bilirubin Negative (Negative); Urine Blood 2+ (Negative); Urine Color Amber; Urine Glucose Negative (Negative); Urine Ketones Negative (Negative); Urine Nitrite Negative (Negative); Urine Protein 2+(100 mg/dL) (Negative); Urine Specific Gravity 1.031 (1.002-1.030); Urine Urobilinogen Negative (Negative)
[2021-09-24 17:26] LABS: Urine Bacteria Absent (Absent); Urine Red Blood Cell Absent (Absent); Urine White Blood Cell Absent (Absent); Urine Yeast Present (Absent)
[2021-09-25] MEDS: Linezolid 600 MG IVPREMIX(*) 600 MG/300 ML BAG IVPB SCH (04:10)
[2021-09-25] MEDS: ZOSYN 3.375 GM Q8H per EXTENDED INFUSION IV SCH (05:40)
[2021-09-25 06:56] LABS: Albumin 3.2 g/dL (3.2-5.2); Albumin/Globulin Ratio 1.3 (1-3); Calcium 7.8 mg/dL (8.6-10.3); Globulin 2.5 g/dL (2-4); Magnesium 1.8 mg/dL (1.9-2.7); Total Bilirubin 0.7 mg/dL (0.2-1.0); Total Protein 5.7 g/dL (6.4-8.9); eGFR CKD-EPI 39.7 (>60)
[2021-09-25] MEDS ORDERED: Magnesium Sulfate 2 gm BAG 2 GM/50 ML BAG IVPB ONE (08:08)
[2021-09-25] MEDS: Dexamethasone 0.1 MG/ML ORALSYR PO SCH (08:09)
[2021-09-25] MEDS: Fluticasone NASAL SPRAY 50MCG 16 gm SPRAY BTL INTRANASAL SCH (08:09)
[2021-09-26 05:54] LABS: Hematocrit 30 % (42-52); Hemoglobin 10.7 g/dL (14.0-18.0); Mean Corpuscular HGB Conc 35 g/dL (31-36); Mean Corpuscular Hemoglobin 33 pg (27-31); Mean Corpuscular Volume 93 fL (80-94); Mean Platelet Volume 7.9 fL (7.4-10.4); Platelet Count 217 10^3/uL (150-450); Red Blood Count 3.26 10^6 /uL (4.18-5.48); Red Cell Distribution Width 14 % (10-15)
[2021-09-26 06:21] LABS: eGFR CKD-EPI 43.1 (>60)
[2021-09-26 07:29] LABS: ABS Basophils 0.1 10^3/ul (0-0.2); ABS Eosinophils 0.1 10^3/ul (0-0.6); ABS Lymphocytes 0.5 10^3/ul (1.0-4.8); ABS Monocytes 0.1 10^3/ul (0-0.8); ABS Neutrophils 4.2 10^3/ul (1.5-7.7); Eosinophil % 2.9 %; Lymphocyte % 9.6 %; Nucleated Red Blood Cells % 0.2
[2021-09-26 09:20] LABS: Folate 13.54 ng/mL (5.90-24.80)
[2021-09-26] MEDS: Fluticasone NASAL SPRAY 50MCG 16 gm SPRAY BTL INTRANASAL SCH (10:45)
[2021-09-26 12:20] LABS: Magnesium 1.5 mg/dL (1.9-2.7)
[2021-09-26] MEDS ORDERED: Magnesium Sulfate IV 3 GM in NS 0.9% 100 ml BAG 100 ML IVPB ONE (13:36)
[2021-09-26] MEDS ORDERED: Magnesium Sulfate 2 GM IV (Premix) IVPB ONE (14:00)
[2021-09-26] MEDS ORDERED: Naloxone 0.4 mg VIAL 0.4 mg/ml 1 ml VIAL ONE (14:03)
[2021-09-26] MEDS ORDERED: fentaNYL 100 mcg/2 ml 50 MCG/ML VIAL ONE (14:03)
[2021-09-26] MEDS ORDERED: Midazolam 5 mg/5 ml VIAL 1 mg/ml 5 ml VIAL (5 mg) ONE (14:03)
[2021-09-26] MEDS ORDERED: Flumazenil 0.5 mg/5 ml 0.1 MG/ML 5 ml VIAL ONE (14:04)
[2021-09-26] MEDS ORDERED: Magnesium Sulfate 1 GM IV 1 GM/100 ML BAG IV ONE (15:00)
[2021-09-26] MEDS ORDERED: Furosemide 20 mg/2 ml IV VIAL IV ONE (15:06)
[2021-09-26 16:59] LABS: Albumin 2.7 g/dL (3.4-4.7); Albumin/Globulin Ratio 0.85; Gamma Globulin 0.7 g/dL (0.6-1.6); Total Protein(PEP) 5.9 g/dL (6.3 - 7.9)
[2021-09-26 23:18] LABS: Anaplasma phagocytophilum Negative (Negative); B. miyamotoi PCR, B Negative (Negative); Babesia divergens/MO-1 Negative (Negative); Babesia ducani Negative (Negative); Ehrlichia chaffeensis Negative (Negative); Ehrlichia ewingii/canis Negative (Negative); Ehrlichia muris eauclairensis Negative (Negative)
[2021-09-27 06:36] LABS: Hematocrit 32 % (42-52); Hemoglobin 11.5 g/dL (14.0-18.0); Mean Corpuscular HGB Conc 36 g/dL (31-36); Mean Corpuscular Hemoglobin 33 pg (27-31); Mean Corpuscular Volume 93 fL (80-94); Platelet Count 308 10^3/uL (150-450); Red Blood Count 3.45 10^6 /uL (4.18-5.48); Red Cell Distribution Width 14 % (10-15); White Blood Count 4.7 10^3/uL (3.5-10.8)
[2021-09-27 06:37] LABS: ABS Eosinophils 0.1 10^3/ul (0-0.6); ABS Lymphocytes 0.4 10^3/ul (1.0-4.8); ABS Monocytes 0.1 10^3/ul (0-0.8); Eosinophil % 2.3 %
[2021-09-27 06:50] LABS: Calcium 8.3 mg/dL (8.6-10.3); Potassium 4.4 mmol/L (3.5-5.0); eGFR CKD-EPI 45.2 (>60)
[2021-09-27] MEDS: Fluticasone NASAL SPRAY 50MCG 16 gm SPRAY BTL INTRANASAL SCH (08:33)
[2021-09-27] MEDS ORDERED: Furosemide 20 mg/2 ml IV VIAL IV SLOW PU ONE (14:55)
[2021-09-27 14:58] LABS: Albumin 3.3 g/dL (3.2-5.2); Albumin/Globulin Ratio 1.4 (1-3); Direct Bilirubin 0.1 mg/dL (0.03-0.18); Globulin 2.4 g/dL (2-4); Indirect Bilirubin 0.5 mg/dL (0.3-1.0); Total Bilirubin 0.6 mg/dL (0.2-1.0); Total Protein 5.7 g/dL (6.4-8.9)
[2021-09-28] MEDS: Fluticasone NASAL SPRAY 50MCG 16 gm SPRAY BTL INTRANASAL SCH (08:40)
[2021-09-29 06:20] LABS: ABS Basophils 0.1 10^3/ul (0-0.2); ABS Eosinophils 0.2 10^3/ul (0-0.6); ABS Lymphocytes 0.7 10^3/ul (1.0-4.8); ABS Monocytes 0.2 10^3/ul (0-0.8); ABS Neutrophils 4.9 10^3/ul (1.5-7.7); Eosinophil % 2.8 %; Hematocrit 31 % (42-52); Hemoglobin 10.9 g/dL (14.0-18.0); Lymphocyte % 12.3 %; Mean Corpuscular HGB Conc 36 g/dL (31-36); Mean Corpuscular Hemoglobin 33 pg (27-31); Mean Corpuscular Volume 92 fL (80-94); Platelet Count 340 10^3/uL (150-450); Red Blood Count 3.33 10^6 /uL (4.18-5.48); Red Cell Distribution Width 14 % (10-15)
[2021-09-29 07:44] LABS: Albumin 2.9 g/dL (3.2-5.2); Calcium 8.3 mg/dL (8.6-10.3); Magnesium 1.7 mg/dL (1.9-2.7); Potassium 4.1 mmol/L (3.5-5.0); Total Bilirubin 0.6 mg/dL (0.2-1.0)
[2021-09-29 07:50] LABS: Albumin/Globulin Ratio 1.2 (1-3); Globulin 2.4 g/dL (2-4); Total Protein 5.3 g/dL (6.4-8.9)
[2021-09-29] MEDS ORDERED: Magnesium Sulfate 2 gm BAG 2 GM/50 ML BAG IVPB ONE (08:30)
[2021-09-29] MEDS: Fluticasone NASAL SPRAY 50MCG 16 gm SPRAY BTL INTRANASAL SCH (10:06)
[2021-09-29 16:15] VITALS: BP 108/46
== END 2021-09-29 18:30 | disposition home health service (06) | DRG 177 ==
LOC: ED 02:12 → SUATTDRO 17:04 → EDHOLD 17:04 → MED 23:24
PROVIDERS: ADMIT Internal Medicine; ATTEND Hospitalist